=== PATIENT | male | born 1940 | race Caucasian/White ===

== ENCOUNTER 2019-01-19 01:54 | Outpatient (CLI) | payer MEDICARE, OTHER, SELFPAY ==
[2019-01-19 07:44] LABS: Abs Immature Grans 0.01 k/cumm (0.0-0.09); Absolute Basophil Count 0.02 k/cumm (0.0-0.2); Absolute Eosinophil Count 0.25 k/cumm (0.0-0.7); Absolute Lymphocyte Count 1.06 k/cumm (1.2-3.4); Absolute Monocyte Count 0.46 k/cumm (0.11-0.7); Absolute Neutrophil Count 2.75 k/cumm (1.2-6.7); Basophils % 0.4; Eosinophils % 5.5; HCT 43.4 % (40.0-50.0); HGB 14.7 g/dL (13.5-17.5); Immature Grans % 0.2; Lymphocytes % 23.3; Mean Corp. HGB Concentration 33.9 g/dL (32.0-36.0); Mean Corpuscular Hemoglobin 31.1 pg (27.0-33.0); Mean Corpuscular Volume 91.9 fL (80-95); Mean Platelet Volume 10.5 fL (8.0-11.0); Monocytes % 10.1; Neutrophils % 60.5; Platelet Count 183 x1000/uL (130-400); RBC 4.72 m/cumm (4.50-6.00); RBC Distribution Width 12.4 % (11.8-14.1); White Blood Cell Count 4.55 k/cumm (4.4-10.8)
[2019-01-19 12:58] LABS: Calculated LDL 100; Cholesterol 176 mg/dL (50-200); HDL Cholesterol 55 mg/dL (40-60); Triglyceride 105 mg/dL (30-150)
[2019-01-19 13:01] LABS: ALT 43 U/L (12-78); AST 19 U/L (15-37); Albumin 3.8 g/dL (3.4-5.0); Alkaline Phosphatase 116 U/L (46-116); Anion Gap 6.4 mmol/L (3-11); BUN 18 mg/dL (7-18); Bilirubin, Total 0.5 mg/dL (0.2-1.0); CO2 30.6 mmol/L (21.0-32.0); CREATININE 1.02 mg/dL (0.70-1.30); Calcium 9.2 mg/dL (8.5-10.1); Chloride 105 mmol/L (98-107); Glucose 103 mg/dL (70-100); Potassium 4.6 mmol/L (3.5-5.1); Sodium 142 mmol/L (136-145); Total Protein 6.8 g/dL (6.4-8.2)
[2019-01-20 11:21] LABS: PSA, Screening 2.5 ng/ml (0-6.5)
== END 2019-01-19 02:14 ==
PROVIDERS: PCP Family Medicine; Visit Provider Nurse Practitioner Family
DX: E78.5 Hyperlipidemia, unspecified (principal); N52.9 Male erectile dysfunction, unspecified; R35.1 Nocturia; M25.561 Pain in right knee; Z12.5 Encounter for screening for malignant neoplasm of prostate
CPT/HCPCS: 36415; 80053; 80061; 83721; 84153; 85025

== ENCOUNTER 2019-04-23 08:32 | Outpatient (CLI) | payer MEDICARE, OTHER, SELFPAY ==
[2019-04-23 10:56] LABS: TSH 0.04 uIU/mL (0.36-3.74)
== END 2019-04-23 08:52 ==
PROVIDERS: PCP Family Medicine; Visit Provider Internal Medicine Endocrinology, Diabetes & Metabolism
DX: Z85.850 Personal history of malignant neoplasm of thyroid (principal)
CPT/HCPCS: 36415; 84443

== ENCOUNTER 2019-06-19 08:17 | Emergency (ER) | payer MEDICARE, OTHER, SELFPAY ==
--- NOTE | 2019-06-19 08:23 | ED.GENADUL_ITS ---
Discharge Plan Disposition Patient Disposition: HOME Condition: Improving Discharge Details Chief Complaint: Nk/Back Pain Clinical Impression: Lumbosacral strain, Radiculopathy of leg Primary Care Provider: Serge Baker ED Provider: Fauzia Gomez Home Meds and New Rx's Prescriptions: New prednisone 20 mg tablet See Rx Instructions .ROUTE .COMPLEX Qty: 12 RF: 0 methocarbamol 500 mg tablet 500 mg PO QID PRN (Reason: muscle spasm) Qty: 14 RF: 0 Continued ibuprofen 200 mg Tablet 200 mg PO Q6H PRNRF: 0 levothyroxine 200 mcg Tablet 200 mcg PO DAILY RF: 0 Discharge Instructions Instructions: Low Back Strain (ED) Additional Instructions: Take the steroids until finished. Take the muscle relaxer as needed and directed. Continue to alternate Tylenol 500mg every 4 hours and Motrin 600mg every 6 hours as needed and directed for pain. You can try [id number] Lidoderm patches to apply to the affected areas as directed. Follow-up with a primary care doctor next week for reevaluation as needed. Return immediately to any emergency department if you develop any worsening or new concerning symptoms such as worsening pain, extremity weakness or numbness or or changes in bowel or bladder function. Discharge Data Discharge Physician: Fauzia Gomez Medical Decision Making 0830 -- 78yo M w/ R lower back/buttock and R posterior leg pain down to his knee since yesterday after misstepping while walking on uneven ground. Has a h/o sciatica and states this feels similar. No cauda equina symptoms. Appears mildly uncomfortable, standing or sitting with weight on L leg. No tenderness to palpation of back/buttock. No focal deficits. Neurovascularly intact. Abdomen soft and nontender. Differential diagnoses include muscle strain, sciatica, disc herniation. Patient is direct falls do not see indication for imaging at this time and he is agreeable. Discussed that diagnosis of disc herniation would include CT or MRI but as he has no focal deficits start with medical management at this time and he is agreeable. We will give a dose of Toradol IM, prednisone p.o. and reassess. 0930 --patient feels much better and he is requesting to go home. Demonstrates much improved ambulation and appears much more comfortable. We will send with a prescription for prednisone and methocarbamol. He is advised to purchase [id number] Lidoderm patches to continue to use Motrin and Tylenol as needed and directed. He is traveling to [place] tomorrow for the next 6 months. He is advised to follow-up with the primary care doctor here for reevaluation next week as needed and return to any emergency department if he develops any worsening symptoms including loss of bowel or bladder function, leg weakness or numbness. Medical Records Medical records reviewed: Yes I reviewed the patient's medical records. HPI General Mode of arrival: ambulatory . Date/Time Provider Initiated Documentation: 06/19/19 08:20 . Limitations to Documentation: no limitations . Information obtained by: patient . HPI Narrative: Patient is a 78-year-old male who presents with right lower back right buttock and right leg pain to his knee since yesterday. Patient states he misstepped when he was walking on uneven ground and is at the pain since then. He states that certain positions with standing or walking make the pain worse. He has taken Motrin and Tylenol with some relief. He has a history of sciatica and states this feels similar. He denies any fall or direct to his back. He denies fever, abdominal pain, leg pain or weakness, bowel or bladder, saddle anesthesia. Related Data Home Medications Medication Instructions Recorded Confirmed ibuprofen 200 mg PO Q6H PRN 06/19/19 06/19/19 levothyroxine 200 mcg PO DAILY 06/19/19 06/19/19 methocarbamol 500 mg PO QID PRN #14 tab 06/19/19 prednisone See Rx Instructions .ROUTE 06/19/19 .COMPLEX #12 tab Previous Rx's Medication Instructions Recorded methocarbamol 500 mg PO QID PRN #14 tab 06/19/19 prednisone See Rx Instructions .ROUTE 06/19/19 .COMPLEX #12 tab Allergies Allergy/AdvReac Type Severity Reaction Status Date / Time lactose AdvReac Unverified 06/19/19 08:26 Review of Systems All systems reviewed & are unremarkable except as noted in HPI and below Constitutional Constitutional: Reports as per HPI, Denies chills and Denies fever(s) Eyes Eyes: Denies blurry vision ENT Ears, Nose, Mouth, and Throat: Denies dizziness, Denies sore throat and Denies throat swelling Cardiovascular Cardiovascular: Denies chest pain and Denies dyspnea Respiratory Respiratory: Denies cough and Denies dyspnea Gastrointestinal Gastrointestinal: Denies abdominal pain, Denies diarrhea and Denies vomiting Genitourinary Genitourinary: Denies hematuria and Denies dysuria Musculoskeletal Musculoskeletal: Reports back pain and Denies numbness Integumentary/Breasts Skin/Breast: Denies lesions and Denies rash Neurologic Neurologic: Denies dizziness, Denies focal weakness and Denies numbness Allergic/Immunologic Allergic/Immunologic: Denies throat swelling [facility] Medical History Hx of thyroid cancer (Acute) Surgical History History of lumbar discectomy (Acute) History of thyroidectomy (Chronic) History of tonsillectomy (Chronic) Social History Smoking/Tobacco Use Status: Never Alcohol Intake: current Alcohol Intake frequency: 0-2 drinks per day Alcohol type: beer Drug use: Never Substance use type: does not use Do you feel safe at home: Yes Do you feel safe in your relationship?: Yes Exam Const General: cooperative, healthy appearing and no acute distress HENMT Head: normal to inspection Face and sinus: normal facial exam Eyes General: appearance normal, both eyes and all related structures EOM: EOM intact bilaterally Neck Neck: normal visual inspection and No submandibular swelling Lymphatic: no lymphadenopathy noted Chest Chest: normal inspection of the chest and no tenderness Resp Effort & Inspection: normal respiratory effort and able to speak in complete sentences Auscultation: clear to auscultation bilaterally Cardio Rate: regular rate Rhythm: regular rhythm GI Inspection: normal to inspection Palpation: soft, not firm, not rigid and nontender Auscultation: normal bowel sounds Back/Spine/Pelvis Thoracic/Lumbar Spine: thoracic and lumbar spine normal to inspection, straight leg raise negative bilaterally, No paraspinal tenderness and No lumbar spinal tenderness Pelvis: no pain with anterior-posterior compression, no buttock ecchymosis, no buttock tenderness and no buttock swelling Skin General skin exam: no rashes or lesions noted Neuro General: alert, awake and oriented x3 Cognition: normal cognition Speech: speech normal Motor: muscle tone normal throughout and strength 5/5 throughout Sensory Exam: no sensory deficits noted DTR's: Rt Patellar: 1+, Lt Patellar: 1+, Rt Ankle: 1+ and Lt Ankle: 1+ Plantar Reflexes: Equivocal: bilateral (negative babinski b/l) Extrem General: normal to inspection, full ROM, normal capillary refill, no calf tenderness bilaterally and no edema Other: B/L DP/PT pulses intact. Psych Appearance: grossly normal Mental Status: mental status grossly normal Speech and Movement: speech and movement normal Affect: normal affect
[2019-06-19 08:24] VITALS: BP 179/85; PULSE 86; RESP 14; TEMP 36.7
[2019-06-19] MEDS: predniSONE 20 MG TAB 60 MG PO (08:51)
[2019-06-19] MEDS: diazePAM 5 MG TAB PO (08:51)
[2019-06-19] MEDS: Ketorolac 60 MG/2 ML VIAL IM (08:51)
[2019-06-19 09:39] VITALS: BP 131/68; PULSE 79; RESP 18; O2SAT 98
== END 2019-06-19 09:44 | disposition home or self-care (01) ==
PROVIDERS: Emergency Provider Physician Assistant; PCP Family Medicine
DX: S33.5XXA Sprain of ligaments of lumbar spine, initial encounter (principal); M54.11 Radiculopathy, occipito-atlanto-axial region; W18.49XA Other slipping, tripping and stumbling without falling, initial encounter
CPT/HCPCS: 96372; 99284; J1885; J7512

== ENCOUNTER 2021-05-01 04:24 | Outpatient (CLI) | payer MEDICARE, OTHER, SELFPAY ==
[2021-05-01 11:21] LABS: FREE T4 1.41 ng/dL (0.76-1.46); TSH 0.05 uIU/mL (0.36-3.74)
[2021-05-03 10:42] LABS: Thyroglobulin Antibody <1.8 IU/mL (<1.8); Thyroglobulin Tumor Marker <0.1 ng/mL
== END 2021-05-01 04:25 | disposition home or self-care (01) ==
LOC: LBO 04:24
PROVIDERS: PCP Family Medicine; Visit Provider Internal Medicine Endocrinology, Diabetes & Metabolism
DX: Z85.850 Personal history of malignant neoplasm of thyroid (principal); E89.0 Postprocedural hypothyroidism
CPT/HCPCS: 36415; 84432; 84439; 84443; 86800

== ENCOUNTER 2023-05-02 02:18 | Outpatient (CLI) | payer MEDICARE, OTHER, SELFPAY ==
[2023-05-02 11:23] LABS: FREE T4 1.14 ng/dL (0.76-1.46); TSH 1.41 uIU/mL (0.36-3.74)
[2023-05-03 17:52] LABS: Thyroglobulin Antibody <1.8 IU/mL (<1.8); Thyroglobulin Tumor Marker 0.4 ng/mL
== END 2023-05-02 02:19 | disposition home or self-care (01) ==
LOC: LBO 02:18
PROVIDERS: PCP Family Medicine; Visit Provider Student in an Organized Health Care Education/Training Program
DX: Z85.850 Personal history of malignant neoplasm of thyroid (principal)
CPT/HCPCS: 36415; 84432; 84439; 84443; 86800

== ENCOUNTER 2023-12-17 05:38 | Outpatient (CLI) | payer MEDICARE, OTHER, SELFPAY ==
[2023-12-17 08:05] LABS: Calculated LDL 110 mg/dL (<100); Cholesterol 194 mg/dL (<200); HDL Cholesterol 71 mg/dL (40-60); TSH 3.41 uIU/Ml (0.36-3.74); Triglyceride 66 mg/dL (<150)
[2023-12-19 14:29] LABS: Thyroglobulin Antibody <1.8 IU/mL (<1.8); Thyroglobulin Tumor Marker 0.7 ng/mL
== END 2023-12-17 05:39 | disposition home or self-care (01) ==
PROVIDERS: PCP Family Medicine; Visit Provider Student in an Organized Health Care Education/Training Program
DX: Z85.850 Personal history of malignant neoplasm of thyroid (principal); C73 Malignant neoplasm of thyroid gland; I25.2 Old myocardial infarction
CPT/HCPCS: 36415; 80061; 84432; 84443; 86800

== ENCOUNTER 2024-04-24 01:15 | Outpatient (CLI) | payer MEDICARE, OTHER, SELFPAY ==
[2024-04-24 13:37] LABS: TSH 0.04 uIU/Ml (0.36-3.74)
[2024-04-27 18:04] LABS: Thyroglobulin Antibody <1.8 IU/mL (<1.8); Thyroglobulin Tumor Marker 0.5 ng/mL
== END 2024-04-24 01:16 | disposition home or self-care (01) ==
LOC: LBO 01:15
PROVIDERS: PCP Family Medicine; Visit Provider Student in an Organized Health Care Education/Training Program
DX: Z85.850 Personal history of malignant neoplasm of thyroid (principal)
CPT/HCPCS: 36415; 84432; 84443; 86800